=== PATIENT | female | born 1935 | race Caucasian/White ===

== ENCOUNTER → 2017-01-15 | Outpatient (REF) | payer MEDICARE ==
[2017-01-15 16:40] LABS: BLOOD UREA NITROGEN 25 MG/DL (7-18); CREATININE FOR GFR 0.82 MG/DL (0.55-1.02); GLOMERULAR FILTRATION RATE > 60.0 (>32)
== END ==
LOC: M LABDRAW1 15:53
PROVIDERS: ATTEND Orthopaedic Surgery
DX: M17.12 Unilateral primary osteoarthritis, left knee (principal)

== ENCOUNTER → 2020-08-27 | Outpatient (CLI) | payer MEDICARE ==
--- NOTE | 2020-08-27 12:08 | REP ---
INDICATION: FX LEFT WRIST.. COMPARISON: None. TECHNIQUE: AP and lateral views left wrist. FINDINGS: There is an old impacted fracture of the distal radius with mild dorsal angulation. There is advanced healing. The remaining osseous structures appear intact. There is mild narrowing of the radiocarpal joint. There is moderate narrowing and sclerotic change at the joint between the scaphoid and trapezium as well as between the trapezium and base of 1st metacarpal. IMPRESSION: Advanced healing of impacted fracture distal radius with mild dorsal angulation. <Electronically signed by Jese Marcano > 08/27/20 [id number]
== END ==
LOC: M SOG 10:46 → M ADAMS 10:46
PROVIDERS: ATTEND Orthopaedic Surgery Sports Medicine
DX: S52.572D Other intraarticular fracture of lower end of left radius, subsequent encounter for closed fracture with routine healing (principal); X58.XXXD Exposure to other specified factors, subsequent encounter

== ENCOUNTER → 2020-09-20 | Outpatient (CLI) | payer MEDICARE ==
--- NOTE | 2020-09-20 12:36 | REP ---
INDICATION: LOW BACK PAIN. COMPARISON: None. TECHNIQUE: AP and lateral views as requested. FINDINGS: AP and lateral views of the lumbar spine demonstrate a levoconvex lumbar curvature consistent with some degree of scoliosis. There is a large amount of formed stool throughout the colon including the distended rectum. There clips in the right upper quadrant of the abdomen. Lumbar vertebral body heights are preserved. Alignment is normal on lateral radiograph. Degenerative disc narrowing is seen at L4-5 and L5-S1 with mild spur formation. Sacrum and SI joints are intact. IMPRESSION: Mild degenerative disc changes L4-5 and L5-S1. Levoconvex curvature. Large amount of formed stool including stool distended rectum, question constipation. <Electronically signed by Satinder Jarvis > 09/20/20 [id number]
--- NOTE | 2020-09-20 12:37 | REP ---
INDICATION: LOW BACK PAIN. COMPARISON: None TECHNIQUE: AP and frog-lateral views FINDINGS: There is moderate asymmetric hip joint space narrowing with femoral head marginal osteophytosis. There is no buttressing. There is no acute fracture, dislocation, or subluxation. The bones are demineralized. Degenerative changes are seen involving the right SI joint. IMPRESSION: Chronic changes as described above. <Electronically signed by Marlon Casas > 09/20/20 [id number]
--- NOTE | 2020-09-20 12:39 | REP ---
INDICATION: LOW BACK PAIN. History of osteo arthritis. COMPARISON: None. TECHNIQUE: Eight views. Bilateral knee series. FINDINGS: There is advanced osteoarthritis affecting the lateral compartment the left knee with partial collapse of the lateral tibial plateau and reactive sclerosis on both sides the lateral compartment. Well established spur formation is seen. These changes appear to be chronic. There is patellofemoral narrowing on the left as well with cysts fragmented spurring at the superior pole of patella. On the right there is mild lateral compartment spurring and some patellofemoral compartment narrowing and spur formation. A small fabella is noted. No evidence of joint effusion. There is diffuse osteoporosis bilaterally IMPRESSION: Bilateral osteoarthritic changes. Old appearing collapse of the lateral tibial plateau on the left with secondary more severe osteoarthritis in this compartment. Diffuse osteoporosis. <Electronically signed by Satinder Jarvis > 09/20/20 [id number]
== END ==
LOC: M SOG 10:45
PROVIDERS: ATTEND Orthopaedic Surgery Sports Medicine
DX: M17.0 Bilateral primary osteoarthritis of knee (principal); M51.36 Other intervertebral disc degeneration, lumbar region; M51.37 Other intervertebral disc degeneration, lumbosacral region; M25.78 Osteophyte, vertebrae; M16.11 Unilateral primary osteoarthritis, right hip